=== PATIENT | male | born 1940 | race Caucasian/White ===

== ENCOUNTER 2023-09-05 17:54 | Inpatient (IN) | payer OTHER, MEDICARE ==
[2023-09-05 19:02] VITALS: BMI 17.1
[2023-09-05] MEDS: ACETAMINOPHEN 1000 MG/100 ML BAG IVPB ONE (20:03)
[2023-09-05] MEDS: SODIUM CHLORIDE 0.9% 500 ML INFUS.BAG IV ONE (20:03)
[2023-09-05 20:08] LABS: VENOUS BASE EXCESS 2.6 mmol/L (-2-2); VENOUS O2 SATURATION 36.1 % (70-80); VENOUS PCO2 50.9 mmHg (38-52); VENOUS PH 7.367 (7.310-7.410)
[2023-09-05 20:11] LABS: BASO % 0.9 % (0-2.0); EOS % 0.3 % (0-4.5); HEMATOCRIT 27.9 % (35.4-49); LYMPH % 15.3 % (8-40); MCH 29.9 pg (25.7-33.7); MCHC 32.3 g/dl (32.0-35.9); MEAN CELL VOLUME 92.6 fl (80-96); MEAN PLT VOLUME 7.5 fl (7.5-11.1); MONO % 11.4 % (3.8-10.2); NEUT % 72.1 % (42.8-82.8); PLATELET COUNT 169 10^3/uL (134-434); RBC 3.01 M/mm3 (4.00-5.60); RDW 15.5 % (11.9-15.9); WHITE BLOOD COUNT 6.2 K/mm3 (4.0-10.0)
[2023-09-05 20:25] LABS: ACTIVATED PTT 29.8 SECONDS (25.2-36.5); PROTHROMBIN TIME (PATIENT) 11.5 SEC (9.7-13.0)
[2023-09-05 20:34] LABS: POTASSIUM 4.9 mmol/L (3.5-5.1)
[2023-09-05 20:36] LABS: BLOOD UREA NITROGEN 21.9 mg/dL (7-18); CALCIUM 8.4 mg/dL (8.5-10.1)
[2023-09-05 20:37] LABS: ALBUMIN 2.5 g/dl (3.4-5.0)
[2023-09-05 20:41] LABS: BILIRUBIN,TOTAL 0.2 mg/dL (0.2-1); TOT PROT 6.1 g/dl (6.4-8.2)
[2023-09-05] MEDS ORDERED: ASPIRIN 325 MG TABLET ONE (22:04)
[2023-09-05] MEDS: ASPIRIN 325 MG TABLET PO ONE (22:10)
[2023-09-06 01:56] LABS: EPI CELLS 4 /uL (0-25.1); HYALINE CASTS 0 /uL (0-3.1); URINE APPEARANCE TURBID; URINE BACTERIA 4122 /uL (0-1359); URINE BILIRUBIN NEGATIVE (NEGATIVE); URINE COLOR YELLOW; URINE GLUCOSE (UA) NEGATIVE (NEGATIVE); URINE KETONE NEGATIVE (NEGATIVE); URINE LEUK ESTERASE 3+ (NEGATIVE); URINE NITRITE NEGATIVE (NEGATIVE); URINE PROTEIN 1+ (NEGATIVE); URINE UROBILINOGEN 0.2 mg/dL (0.2-1.0); URINE WBC 2156 /uL (0-25.8)
[2023-09-06] MEDS ORDERED: CEFTRIAXONE 1 GM/50 ML BAG ONE (02:43)
[2023-09-06] MEDS: CEFTRIAXONE 1 GM in DEXTROSE 5%-WATER - 50 ML IVPB SCH (03:00)
[2023-09-06] MEDS ORDERED: ALBUTEROL SO4 2.5/IPRATROPIUM 0.5 INH SOL 3 ML VIAL.NEB. NEB PRN (03:49)
[2023-09-06 03:51] LABS: URINE RBC 89 /uL (0-23.9); YEAST NONE SEEN (NEGATIVE)
[2023-09-06] MEDS: HEPARIN NA (PORCINE) 5,000 UNITS/ML 1ML VIAL SQ SCH (05:10)
[2023-09-06] MEDS: REMDESIVIR 200 MG in SODIUM CHLORIDE 250 ML IVPB ONE (05:40)
[2023-09-06] MEDS: INSULIN ASPART SLIDING SCALE (NOVOLOG) 1 VIAL SQ SCH (06:08)
[2023-09-06] MEDS ORDERED: ACETYLCYSTEINE IH PRN (07:00)
[2023-09-06] MEDS ORDERED: INSULIN ASPART SLIDING SCALE (NOVOLOG) 1 VIAL SQ SCH (07:00)
[2023-09-06 07:05] LABS: HEMATOCRIT 25.8 % (35.4-49); HEMOGLOBIN 8.5 GM/dL (11.7-16.9); MCH 30.4 pg (25.7-33.7); MCHC 33.1 g/dl (32.0-35.9); MEAN CELL VOLUME 91.9 fl (80-96); MEAN PLT VOLUME 7.3 fl (7.5-11.1); PLATELET COUNT 163 10^3/uL (134-434); RDW 15.4 % (11.9-15.9); RETICULOCYTES 0.97 % (0.5-1.5); WHITE BLOOD COUNT 8.2 K/mm3 (4.0-10.0)
[2023-09-06 07:25] LABS: POTASSIUM 4.8 mmol/L (3.5-5.1)
[2023-09-06 07:27] LABS: CALCIUM 7.7 mg/dL (8.5-10.1)
[2023-09-06 07:28] LABS: ALBUMIN 2.4 g/dl (3.4-5.0); BLOOD UREA NITROGEN 22.3 mg/dL (7-18); MAGNESIUM 1.8 mg/dL (1.8-2.4)
[2023-09-06 07:30] LABS: PHOSPHOROUS 3.6 mg/dL (2.5-4.9)
[2023-09-06 07:31] LABS: CREATININE 1.9 mg/dL (0.55-1.3)
[2023-09-06 07:32] LABS: BILIRUBIN,TOTAL 0.4 mg/dL (0.2-1); TOT PROT 5.7 g/dl (6.4-8.2)
[2023-09-06] MEDS ORDERED: ASPIRIN 81 MG CHEWABLE TABLETS PO SCH (10:00)
[2023-09-06] MEDS ORDERED: MULTIVITAMINS (DAILY MVI) TABLET (FP) PO SCH (10:00)
[2023-09-06] MEDS ORDERED: SENNOSIDES 8.6MG TABLET (FP) PO SCH (10:00)
[2023-09-06] MEDS ORDERED: CARVEDILOL 6.25 MG TABLET (FP) PO SCH (10:00)
[2023-09-06] MEDS: ACETAMINOPHEN 325 MG TABLET (FP) PO SCH (10:32)
[2023-09-06] MEDS: POLYETHYLENE GLYCOL (HEALTHYLAX) 3350 17 GM PACKET PO SCH (10:32)
[2023-09-06] MEDS: MULTIVITAMINS THER W-MINERALS COMBO TABLET (FP) PO SCH (10:33)
[2023-09-06] MEDS: MEMANTINE HCL 5 MG TABLET (UD) PO SCH (10:33)
[2023-09-06] MEDS: ASPIRIN COATED 81 MG TABLET.EC PO SCH (10:33)
[2023-09-06] MEDS: CARVEDILOL 6.25 MG TABLET (FP) PO SCH (10:33)
[2023-09-06] MEDS: ASCORBIC ACID 500 MG TABLET (FP) PO SCH (10:33)
[2023-09-06] MEDS: SODIUM CHLORIDE 1,000 ML IV SCH (12:24)
[2023-09-06] MEDS: DEXAMETHASONE SOD PHOSPHATE 10 MG/1 ML VIAL IVPUSH SCH (13:59)
[2023-09-06] MEDS: TAMSULOSIN HCL 0.4 MG CAP PO SCH (21:31)
[2023-09-06] MEDS: ATORVASTATIN CA 10 MG TABLET (FP) PO SCH (21:31)
[2023-09-06] MEDS: SENNOSIDES 8.6MG TABLET (FP) PO SCH (21:31)
[2023-09-06] MEDS: DONEPEZIL HCL 5 MG TABLET (FP) PO SCH (21:32)
[2023-09-07 07:18] LABS: BASO % 0.4 % (0-2.0); HEMATOCRIT 22.4 % (35.4-49); HEMOGLOBIN 7.3 GM/dL (11.7-16.9); MCH 30.1 pg (25.7-33.7); MCHC 32.6 g/dl (32.0-35.9); MEAN CELL VOLUME 92.4 fl (80-96); MEAN PLT VOLUME 7.9 fl (7.5-11.1); MONO % 10.1 % (3.8-10.2); NEUT % 77.5 % (42.8-82.8); PLATELET COUNT 161 10^3/uL (134-434); RBC 2.42 M/mm3 (4.00-5.60); RDW 15.3 % (11.9-15.9); WHITE BLOOD COUNT 6.2 K/mm3 (4.0-10.0)
[2023-09-07 07:39] LABS: POTASSIUM 4.7 mmol/L (3.5-5.1)
[2023-09-07 07:42] LABS: CALCIUM 7.8 mg/dL (8.5-10.1)
[2023-09-07 07:43] LABS: MAGNESIUM 1.9 mg/dL (1.8-2.4)
[2023-09-07 07:46] LABS: CREATININE 1.7 mg/dL (0.55-1.3)
[2023-09-07 07:48] LABS: PHOSPHOROUS 4.5 mg/dL (2.5-4.9); TOT PROT 4.9 g/dl (6.4-8.2)
[2023-09-07 07:51] LABS: BILIRUBIN,TOTAL 0.2 mg/dL (0.2-1)
[2023-09-07 16:17] LABS: HEMATOCRIT 21.3 % (35.4-49); HEMOGLOBIN 7.2 GM/dL (11.7-16.9); MCH 30.7 pg (25.7-33.7); MEAN CELL VOLUME 90.4 fl (80-96); MEAN PLT VOLUME 7.9 fl (7.5-11.1); PLATELET COUNT 175 10^3/uL (134-434); RBC 2.36 M/mm3 (4.00-5.60); RDW 15.7 % (11.9-15.9); WHITE BLOOD COUNT 6.3 K/mm3 (4.0-10.0)
[2023-09-07] MEDS: REMDESIVIR 100 MG in SODIUM CHLORIDE 250 ML IVPB SCH (21:39)
[2023-09-08 07:05] LABS: HEMATOCRIT 24.4 % (35.4-49); HEMOGLOBIN 8.1 GM/dL (11.7-16.9); MCH 30.4 pg (25.7-33.7); MCHC 33.2 g/dl (32.0-35.9); MEAN CELL VOLUME 91.5 fl (80-96); PLATELET COUNT 208 10^3/uL (134-434); RBC 2.66 M/mm3 (4.00-5.60); RDW 15.2 % (11.9-15.9); WHITE BLOOD COUNT 7.9 K/mm3 (4.0-10.0)
[2023-09-08 07:15] LABS: CALCIUM 7.9 mg/dL (8.5-10.1)
[2023-09-08 07:16] LABS: BLOOD UREA NITROGEN 31.9 mg/dL (7-18)
[2023-09-08 07:19] LABS: CREATININE 1.7 mg/dL (0.55-1.3)
[2023-09-08] MEDS: levoFLOXacin 750 MG TABLET PO SCH (12:06)
[2023-09-08] MEDS: KETOROLAC TROMETHAMINE 15 MG/ML VIAL IVPUSH PRN (21:50)
[2023-09-09 07:17] LABS: BASO % 0.1 % (0-2.0); HEMATOCRIT 20.9 % (35.4-49); LYMPH % 13.4 % (8-40); MCHC 33.1 g/dl (32.0-35.9); MEAN CELL VOLUME 90.7 fl (80-96); MEAN PLT VOLUME 8.1 fl (7.5-11.1); MONO % 8.1 % (3.8-10.2); NEUT % 78.4 % (42.8-82.8); PLATELET COUNT 199 10^3/uL (134-434); RDW 15.3 % (11.9-15.9); WHITE BLOOD COUNT 7.4 K/mm3 (4.0-10.0)
[2023-09-09 07:18] LABS: HEMOGLOBIN 6.9 GM/dL (11.7-16.9)
[2023-09-09] MEDS: LIDOCAINE 5% TOPICAL PATCH TP ONE (10:42)
[2023-09-09] MEDS ORDERED: AZTREONAM 2 GM in DEXTROSE 5%-WATER 100 ML IVPB SCH (12:00)
[2023-09-09] MEDS: AZTREONAM 2 GM in DEXTROSE 5%-WATER 100 ML IVPB SCH (13:20)
[2023-09-09 16:42] LABS: HEMATOCRIT 22.6 % (35.4-49); HEMOGLOBIN 7.5 GM/dL (11.7-16.9); MCH 29.9 pg (25.7-33.7); MCHC 33.2 g/dl (32.0-35.9); MEAN CELL VOLUME 90.1 fl (80-96); PLATELET COUNT 231 10^3/uL (134-434); RDW 15.4 % (11.9-15.9); WHITE BLOOD COUNT 6.8 K/mm3 (4.0-10.0)
[2023-09-09] MEDS: LIDOCAINE PATCH REMOVAL MC SCH (22:04)
[2023-09-10 07:55] LABS: HEMATOCRIT 23.7 % (35.4-49); HEMOGLOBIN 7.8 GM/dL (11.7-16.9); MCH 30.1 pg (25.7-33.7); MEAN CELL VOLUME 91.1 fl (80-96); MEAN PLT VOLUME 7.8 fl (7.5-11.1); PLATELET COUNT 233 10^3/uL (134-434); WHITE BLOOD COUNT 7.9 K/mm3 (4.0-10.0)
[2023-09-10 08:13] LABS: POTASSIUM 4.7 mmol/L (3.5-5.1)
[2023-09-10 08:14] LABS: CALCIUM 7.9 mg/dL (8.5-10.1)
[2023-09-10 08:15] LABS: BLOOD UREA NITROGEN 39.6 mg/dL (7-18)
[2023-09-10 08:18] LABS: CREATININE 1.6 mg/dL (0.55-1.3)
[2023-09-10] MEDS: AZTREONAM 2 GM in DEXTROSE 5%-WATER 100 ML IVPB SCH (22:31)
[2023-09-11 09:28] LABS: HEMATOCRIT 24.5 % (35.4-49); HEMOGLOBIN 8.3 GM/dL (11.7-16.9); MCH 30.6 pg (25.7-33.7); MEAN CELL VOLUME 90.1 fl (80-96); MEAN PLT VOLUME 7.7 fl (7.5-11.1); PLATELET COUNT 291 10^3/uL (134-434); RBC 2.72 M/mm3 (4.00-5.60); RDW 15.4 % (11.9-15.9); WHITE BLOOD COUNT 10.4 K/mm3 (4.0-10.0)
[2023-09-11 09:51] LABS: POTASSIUM 4.4 mmol/L (3.5-5.1)
[2023-09-11 09:52] LABS: CALCIUM 8.2 mg/dL (8.5-10.1)
[2023-09-11 09:54] LABS: BLOOD UREA NITROGEN 33.9 mg/dL (7-18)
[2023-09-11 09:57] LABS: CREATININE 1.3 mg/dL (0.55-1.3)
[2023-09-11 21:35] VITALS: RESP 18
[2023-09-12 09:12] VITALS: BP 102/66; PULSE 70; TEMP 98
== END 2023-09-12 13:50 | DRG 177 ==
LOC: JER 17:54 → JERBED 09-06 01:06 → J4S 09-06 03:12 → OBSVTOIN 09-06 03:38
PROVIDERS: ADMIT Internal Medicine; ATTEND Internal Medicine
PROC: XW033E5 Introduction of Remdesivir Anti-infective into Peripheral Vein, Percutaneous Approach, New Technology Group 5 (ICD-10-PCS; principal; 2023-09-06)
DX: U07.1 COVID-19 (principal); E43 Unspecified severe protein-calorie malnutrition; I42.2 Other hypertrophic cardiomyopathy; N17.9 Acute kidney failure, unspecified; I13.0 Hypertensive heart and chronic kidney disease with heart failure and stage 1 through stage 4 chronic kidney disease, or unspecified chronic kidney disease; I50.32 Chronic diastolic (congestive) heart failure; Z68.1 Body mass index [BMI] 19.9 or less, adult; N39.0 Urinary tract infection, site not specified; N18.9 Chronic kidney disease, unspecified; E11.22 Type 2 diabetes mellitus with diabetic chronic kidney disease; E78.5 Hyperlipidemia, unspecified; J44.9 Chronic obstructive pulmonary disease, unspecified; G30.9 Alzheimer's disease, unspecified; F02.80 Dementia in other diseases classified elsewhere, unspecified severity, without behavioral disturbance, psychotic disturbance, mood disturbance, and anxiety; R29.6 Repeated falls; N40.0 Benign prostatic hyperplasia without lower urinary tract symptoms; D50.9 Iron deficiency anemia, unspecified; R07.81 Pleurodynia; R13.19 Other dysphagia
CPT/HCPCS: 0241U-QW; 36415; 70450-TC; 71045-TC-FY; 72125-TC; 80048; 80053; 81003; 82272; 82728; 82803; 82962; 83010; 83036; 83540; 83550; 83605; 83615; 83735; 84100; 84484; 85025; 85027; 85045; 85610; 85730; 86140; 86850; 86900; 86901; 87040; 87086; 87186; 93005; 93010; 93306-TC; 97116-GP; 97161-GP; 99285-25; G0378; J0131; J0248; J1100; J1644